=== PATIENT | female | born 1985 | race Hispanic/Latino ===

== ENCOUNTER 2020-12-07 01:13 | Inpatient (IN) | payer BC, OTHER ==
[~2020-12-07] VITALS: Ht 157.5 cm; Wt 66.2 kg
[2020-12-07] VITALS (8 sets, daily range): BP systolic 95–125; BP diastolic 52–74
[2020-12-07] MEDS ORDERED: LACTATED RINGERS 1000ML 1,000 ML IV SCH (01:30)
[2020-12-07] MEDS ORDERED: PREN-196 PO (01:35)
[2020-12-07 01:48] LABS: APPEARANCE,URINE Clear (CLEAR); BILIRUBIN,URINE Negative (NEGATIVE); COLOR,URINE Yellow (YELLOW); GLUCOSE, URINE (UA) Negative (NEGATIVE); KETONES,URINE Trace mg/dL (NEGATIVE); LEUKOCYTE ESTERASE ,URINE Trace (NEGATIVE); NITRATE,URINE Negative (NEGATIVE); OCCULT BLOOD,URINE Negative (NEGATIVE); PROTEIN,URINE Negative (NEGATIVE)
[2020-12-07] MEDS ORDERED: AMPICILLIN 2GM+NS 100ML 100 ML IV ONE (01:54)
[2020-12-07 01:59] LABS: BACTERIA,URINE Rare /HPF (None Seen); MUCUS,URINE Rare LPF (None Seen); SQUAMOUS EPITHELIAL CELL,UR 0-2 /HPF (0-2)
[2020-12-07 02:27] LABS: HEMATOCRIT 39.7 % (36-48); MEAN CORPUSCULAR HEMOGLOBIN 30.3 pg (27.0-33.0); MEAN CORPUSCULAR VOLUME 91.9 fL (79-99); RED BLOOD CELL COUNT(AUTO) 4.32 MIL/uL (4.00-5.50); RED CELL DISTRIBUTION WIDTH 13.8 % (11.0-15.5); WHITE BLOOD COUNT (AUTO) 8.4 K/uL (4.8-10.8)
[2020-12-07] MEDS ORDERED: MEPERIDINE-PF 50 MG/ML SYG IVP PRN (02:30)
[2020-12-07] MEDS ORDERED: LACTATED RINGERS 1000ML 1,000 ML IV PRN (02:30)
[2020-12-07] MEDS ORDERED: PROMETHAZINE HCL 25 MG/ML 1ML AMPULE IM PRN (02:30)
[2020-12-07] MEDS ORDERED: MEPERIDINE-PF 50 MG/ML SYG ONE (02:36)
[2020-12-07] MEDS ORDERED: OXYTOCIN-LR 20 UNITS/1000 ML 1,000 ML IV ONE (02:45)
[2020-12-07] MEDS ORDERED: LIDOCAINE HCL MPF 1% 5ML VIAL ONE (02:46)
[2020-12-07] MEDS ORDERED: MEASLES/MUMPS/RUBELLA VACCINE, LIVE 0.5 ML/VIAL SQ PRN (03:30)
[2020-12-07] MEDS ORDERED: LANOLIN 30GM OINTMENT TP PRN (03:30)
[2020-12-07] MEDS ORDERED: ACETAMINOPHEN 325 MG TAB PO PRN ×2 (03:30→04:00)
[2020-12-07] MEDS ORDERED: BENZOCAINE/LANOLIN/ALOE VERA 60 ML AEROSOL TP PRN (03:30)
[2020-12-07] MEDS ORDERED: ACETAMINOPHEN WITH CODEINE 1 TAB TAB PO PRN (03:30)
[2020-12-07] MEDS ORDERED: DIPH,PERTUSS(ACELL),TET VAC/PF 0.5 ML VIAL IM PRN (03:30)
[2020-12-07] MEDS ORDERED: WITCH HAZEL 1 PAD TP PRN (03:30)
[2020-12-07] MEDS: OXYTOCIN-LR 20 UNITS/1000 ML 1,000 ML IV SCH ×2 (04:11→08:00)
[2020-12-07] MEDS: IBUPROFEN 600 MG TABLET PO PRN (05:01)
[2020-12-07 13:52] LABS: RAPID PLASMA REAGIN NONREACTIVE (NONREACTIVE)
[2020-12-07] MEDS: DOCUSATE SODIUM 100 MG CAP PO SCH (20:50)
[2020-12-08 03:25] VITALS: BP 89/51
[2020-12-08] MEDS: IBUPROFEN 600 MG TABLET PO PRN (06:55)
[2020-12-08] MEDS ORDERED: DIPH,PERTUSS(ACELL),TET VAC/PF 0.5 ML VIAL IM ONE (07:00)
[2020-12-08 07:08] VITALS: BP 120/64
[2020-12-08 08:14] LABS: HEPATITIS Bs ANTIGEN SCREEN P Negative (Negative)
[2020-12-08] MEDS: DOCUSATE SODIUM 100 MG CAP PO SCH (09:34)
== END 2020-12-08 12:05 | disposition home or self-care (01) | DRG 806 ==
LOC: EDH 01:13 → LDH 01:14 → OBSVTOIN 01:14 → WSH 05:07
PROVIDERS: ADMIT Obstetrics & Gynecology; ATTEND Obstetrics & Gynecology
PROC: 10E0XZZ Delivery of Products of Conception, External Approach (ICD-10-PCS; principal; 2020-12-07)
PROC: 0UQMXZZ Repair Vulva, External Approach (ICD-10-PCS; 2020-12-07)
PROC: 0UQGXZZ Repair Vagina, External Approach (ICD-10-PCS; 2020-12-07)
PROC: 3E0234Z Introduction of Serum, Toxoid and Vaccine into Muscle, Percutaneous Approach (ICD-10-PCS; 2020-12-07)
DX: O71.82 Other specified trauma to perineum and vulva (principal); O71.4 Obstetric high vaginal laceration alone; Z37.0 Single live birth; Z3A.37 37 weeks gestation of pregnancy; Z23 Encounter for immunization
CPT/HCPCS: 36415; 81001; 85027; 86592; 86701; 86850; 86900; 86901; 87340; 87390; 90715; G0378; J0290; J2175; J2590; J3490; J7120